=== PATIENT | male | born 1950 | race Caucasian/White ===

== ENCOUNTER → 2020-01-03 | Outpatient (CLI) | payer OTHER | LOC: SJCVCIMAG 10:07 | PROVIDERS: ATTEND Internal Medicine | DX: I35.8 Other nonrheumatic aortic valve disorders (principal); I25.10 Atherosclerotic heart disease of native coronary artery without angina pectoris; E78.5 Hyperlipidemia, unspecified; E78.00 Pure hypercholesterolemia, unspecified; Z79.82 Long term (current) use of aspirin; Z79.899 Other long term (current) drug therapy; Z86.018 Personal history of other benign neoplasm ==

== ENCOUNTER → 2021-01-01 | Outpatient (CLI) | payer OTHER | LOC: SJCVCIMAG 10:23 | PROVIDERS: ATTEND Internal Medicine | DX: I08.2 Rheumatic disorders of both aortic and tricuspid valves (principal); R00.1 Bradycardia, unspecified; D15.1 Benign neoplasm of heart; I25.10 Atherosclerotic heart disease of native coronary artery without angina pectoris; E78.5 Hyperlipidemia, unspecified; I65.29 Occlusion and stenosis of unspecified carotid artery; N52.9 Male erectile dysfunction, unspecified; E78.00 Pure hypercholesterolemia, unspecified; D21.9 Benign neoplasm of connective and other soft tissue, unspecified; Z79.82 Long term (current) use of aspirin; Z79.899 Other long term (current) drug therapy; Z85.828 Personal history of other malignant neoplasm of skin ==

== ENCOUNTER → 2021-04-25 | Outpatient (CLI) | payer OTHER ==
[~2021-04-25] MED LIST: ASPIRIN EC81 M1 PO; CO-ENZYME Q-1010 MG PO; COMBIGAN EYE DR10 ML OPHTHALMIC; MULTI VITAMIN1 EACH PO; PROSCAR 5MG TABL5 MG PO; SIMBRINZA 1%-0.28 ML OPHTHALMIC; VITAMIN D325 MC5 PO; ZOCOR 20 MG TAB20 M1 PO
== END ==
LOC: LAB 12:17
PROVIDERS: ATTEND Student in an Organized Health Care Education/Training Program
DX: Z01.812 Encounter for preprocedural laboratory examination (principal); Z20.822 Contact with and (suspected) exposure to COVID-19

== ENCOUNTER → 2021-04-27 | Outpatient (CLI) | payer OTHER ==
[~2021-04-27] VITALS: Ht 180.3 cm; Wt 72.6 kg
--- NOTE | 2021-04-29 09:23 | P ---
[facility] [place] [address] PROCEDURE REPORT Name: SANDY MISHRA Room #: REG [facility] Michelle#: [id number] Admission: 04/27/21 Attend Phys: Bret Montero Discharge: Date of : 48 Report #: [id number] THIS REPORT FOR: cc: Jeff Velazquez MD, Christopher B. MD McElhinney, Christian C. MD ~ cc: Reynaldo Velazquez MD DATE OF SERVICE: 04/27/2021 PROCEDURE PERFORMED: Colonoscopy with biopsies. HISTORY OF PRESENT ILLNESS: The patient is a 70-year-old male who presents today for routine screening colonoscopy. Last colonoscopy approximately 10 years ago. He denies any symptoms. No family history of colon cancer. DESCRIPTION OF PROCEDURE: The risks and benefits of the procedure were explained to the patient, those risks including but not limited to bleeding, perforation and the risk of sedation. He understood these risks and gave informed consent. Sedation was given using propofol per anesthesia. Next, a digital rectal exam was initially performed, which was normal. Next, using a standard Olympus colonoscope, the scope was placed in the patient's anus and advanced under direct vision to the cecum. The overall prep was excellent. Two 3-mm sessile polyps were noted in the cecum, both removed with cold forceps, otherwise normal. In the ascending colon, a 4 mm sessile polyp was noted, also removed with cold forceps. In the transverse colon, 3 mm sessile polyp was noted and removed with cold forceps. Descending and sigmoid colon were normal. The rectal mucosa was normal. On retroflexion, small nonbleeding internal hemorrhoids were noted. The scope was then withdrawn and the procedure terminated. The patient tolerated the procedure well. IMPRESSION: 1. Four small colonic polyps. 2. Small internal hemorrhoids. 3. Otherwise, normal colonoscopy. RECOMMENDATIONS: 1. Await biopsy results. 2. If polyps are hyperplastic, repeat in 10 years; if adenomatous polyps, repeat in [address] [address] PROCEDURE REPORT Name: SANDY MISHRA Room #: REG KAYLA Ramos#: [id number] Admission: 04/27/21 Attend Phys: Bret Montero Discharge: Date of : 48 Report #: [id number] Thank you for allowing me to participate in his care. <ELECTRONICALLY SIGNED> By: Bret Mcdonald MD 04/29/21 0923 [id number] [id number] Bret Mcdonald MD /nt
--- NOTE | 2021-05-01 17:07 | PATH ---
[facility] [address] [place] [address] PATHOLOGY RPT PROCEDURE Name: KAIDEN ZIMMERMAN [id number] Admission: 04/27/21 Date of : 48 Discharge: Report #: [id number] Path Case #: [id number] Accession Number: [id number] . 01 Material submitted: . PART A: cecum - CAECAL POLYP X2 PART B: colon - ASCENDING POLYP. Modifiers: ascending PART C: colon - TRANSVERSE POLYP. Modifiers: transverse . 01 Clinical history: . COLONOSCOPY HISTORY OF POLYP COLON POLYPS, INTERNAL HEMORRHOIDS DTS/COLONOSCOPY /CHANGE IN BOWEL HABITS . 02 Diagnosis: A. Colonic mucosa, cecal polyp x 2, biopsy: - Tubular adenoma. - Prominent benign lymphoid appearing aggregate. . B. Colonic mucosa, ascending polyp, biopsy: - Colonic mucosa with no significant pathologic changes. . C. Colonic mucosa, transverse polyp, biopsy: - Tubular adenoma. (SCA:pit; 04/30/2021) QTP 04/30/2021 1212 Local . 02 Electronically signed: . Kaiden Werner DO, Pathologist NPI- [id number] . 01 Gross description: . A. Received in formalin labeled "Kaiden Zimmerman, cecal polyp x2" are 3 fragments of cuello-brown soft tissue measuring in aggregate 0.7 x 0.4 x 0.2 cm. The specimen is submitted entirely in A1. . B. Received in formalin labeled "Kaiden Zimmerman ascending polyp" are multiple fragments of cuello-brown soft tissue measuring in aggregate 0.9 x 0.3 x 0.2 cm. The specimen is submitted entirely in B1. . C. Received in formalin labeled "Kaiden Zimmerman transverse polyp" is a fragment of cuello-brown soft tissue measuring 0.6 x 0.4 x 0.3 cm. The specimen is submitted entirely in C1.([facility]; 04/28/2021) GZA/GZA 04/30/2021 [facility] Local . 02 Pathologist provided ICD-10: [address] [address] PATHOLOGY RPT PROCEDURE Name: KAIDEN ZIMMERMAN SAM Room #: REG KAYLA Ramos#: [id number] Admission: 04/27/21 Date of : 48 Discharge: Report #: [id number] Path Case #: [id number] D12.0, D12.3 . 02 CPT . 665349, [id number], [id number] Specimen Comment: A courtesy copy of this report has been sent to [phone], [phone] Specimen Comment: [id number] Specimen Comment: Report sent to / DR PULIDO Performed at: 01 [facility] [address] [place] [address] [id number] MD Paul Ochoa MD Phone: [phone] Performed at: 02 [facility] [address] [place] [address] [id number] MD Miguel Caballero MD Phone: [phone]
== END | disposition home or self-care (01) ==
LOC: GI
PROVIDERS: ATTEND Specialist
DX: Z12.11 Encounter for screening for malignant neoplasm of colon (principal); Z86.010 Personal history of colon polyps; D12.0 Benign neoplasm of cecum; D12.3 Benign neoplasm of transverse colon; K64.8 Other hemorrhoids; E78.5 Hyperlipidemia, unspecified; N40.0 Benign prostatic hyperplasia without lower urinary tract symptoms; Z98.890 Other specified postprocedural states; Z79.899 Other long term (current) drug therapy; Z85.828 Personal history of other malignant neoplasm of skin; Z79.82 Long term (current) use of aspirin
CPT/HCPCS: 62110; 62900